=== PATIENT | female | born 1970 | race Caucasian/White ===

== ENCOUNTER → 2017-07-05 | Outpatient (CLI) | payer OTHER ==
--- NOTE | 2017-07-05 16:45 | RADIOLOGY REPORT (SQ) ---
EXAM DESCRIPTION: MRI CERVICAL SPINE COMBO COMPLETED DATE/TIME: 07/05/2017 1:23 pm REASON FOR STUDY: SEVERE CERVICAL DDD (M50.80), S/P FUSION (M43.22) M50.80 OTHER CERVICAL DISC DISO RDERS, UNSPECIFIED CERVICAL R M43.22 FUSION OF SPINE, CERVICAL REGION COMPARISON: Cervical spine plain films 11/29/2015 TECHNIQUE: Sagittal and Axial imaging includes T1, T2, STIR and gradient echo sequences. T1 post pradip olinium sequences. CONTRAST TYPE AND DOSE: 15 mL Multihance. RENAL FUNCTION: GFR > 60. LIMITATIONS: None. FINDINGS: ALIGNMENT: Normal. VERTEBRAE: Intact. BONE MARROW: Normal. No marrow replacement or reactive changes. DISCS: Post fusion at C5-6 with a metallic disc spacer and anterior fixation plate. HARDWARE: As above CORD AND BASE OF BRAIN: Normal in size and signal intensity. No abnormal contrast enhancement. SOFT TISSUES: No soft tissue masses. C1-C2: No significant spinal stenosis. C2-C3: No significant spinal stenosis or exit foraminal stenosis. C3-C4: No significant spinal stenosis or exit foraminal stenosis. C4-C5: No significant spinal stenosis or exit foraminal stenosis. C5-C6: Post fusion. No significant central or foraminal encroachment. C6-C7: Mild diffuse posterior disc bulging is present left greater than right, causing mild left fora lauri narrowing. No central canal stenosis or right foraminal narrowing. C7-T1: No significant spinal stenosis or exit foraminal stenosis. UPPER THORACIC: Incompletely imaged. No significant spinal stenosis or exit foraminal stenosis. ENHANCEMENT: No abnormal enhancement. OTHER: No other significant finding. IMPRESSION: No abnormal cervical cord or upper thoracic spinal cord enhancement Post fusion at C5-6 without significant central or foraminal encroachment. At C6-7, mild diffuse posterior disc bulging left greater than right is present with mild left forami nal narrowing. COMMENT: None. TECHNICAL DOCUMENTATION: JOB ID: [id number]- All Rights Reserved Reading location - IP/workstation name: [facility]
== END ==
LOC: RAD 12:12
PROVIDERS: ATTEND Student in an Organized Health Care Education/Training Program
DX: M50.323 Other cervical disc degeneration at C6-C7 level (principal); M43.22 Fusion of spine, cervical region
CPT/HCPCS: 82565; 72156; A9577